=== PATIENT | female | born 1930 | race Hispanic/Latino ===

== ENCOUNTER 2016-09-10 10:33 | Outpatient (CLI) | payer MEDICARE ==
[2016-09-10 12:48] LABS: #Basophils 0.1 thou/uL (0.0-0.2); #Eosinphils 0.1 thou/uL (0.0-0.7); #Lymphocytes 3.1 thou/uL (1.20-3.40); #Monocytes 0.5 thou/uL (0.11-0.59); #Neutrophils 3.5 thou/uL (1.40-6.50); %Eosinophils 1.9 % (0.0-10.0); %Lymphocytes 42.8 % (21.0-51.0); %Monocytes 6.9 % (0.0-10.0); %Neutrophils 47.4 % (42.0-75.0); Hemoglobin 10.9 g/dL (12.0-16.0); Mean Corpuscular HGB CONC 33.2 g/dL (32.0-36.0); Mean Corpuscular Hemoglobin 29.5 pg (27.0-31.0); Mean Corpuscular Volume 88.8 fl (81.0-99.0); Mean Platelet Volume 7.1 fL (7.4-10.4); Platelet Count 171 thou/uL (130-400); RBC Distribution Width 12.5 % (11.5-14.5); Red Blood Cell (RBC) Count 3.71 mill/uL (4.20-5.40); White Blood Cell (WBC) Count 7.3 thou/uL (4.8-10.8)
[2016-09-10 13:25] LABS: ALT (SGPT) 15 U/L (0-55); AST (SGOT) 25 U/L (5-34); Albumin 3.8 g/dL (3.4-4.8); Alkaline Phosphatase 61 U/L (40-150); Anion Gap 17 mmol/L (10-20); BUN (Urea Nitrogen) 23 mg/dL (9.8-20.1); Bilirubin, Total 0.7 mg/dL (0.2-1.2); Calc. Creatinine Clearance 0 mL/min (70-130); Calcium 9.2 mg/dL (7.8-10.44); Carbon Dioxide 23 mmol/L (23-31); Cardiac Risk 5.4 (Less than 4.5); Chloride 108 mmol/L (98-107); Cholesterol 211 mg/dL (< 200 Desired); Estimated GFR-MDRD 65; Glucose 73 mg/dL (83-110); HDL Cholesterol 39 mg/dL (>60 Neg Risk); LDL Cholesterol, Calculated 132 mg/dL; Protein, Total 6.8 g/dL (5.8-8.1); Sodium 144 mmol/L (136-145); Triglycerides 198 mg/dL (Less than 150)
[2016-09-10 13:33] LABS: Hemoglobin A1c 5.1 % (4.0-6.0)
== END 2016-09-10 10:34 | disposition home or self-care (01) ==
LOC: NAVSJIPCSP 10:33
PROVIDERS: ATTEND Internal Medicine
DX: E78.5 Hyperlipidemia, unspecified (principal); E11.22 Type 2 diabetes mellitus with diabetic chronic kidney disease; Z79.899 Other long term (current) drug therapy
CPT/HCPCS: 36415; 80053; 80061; 83036; 85025